=== PATIENT | female | born 1965 | race Asian ===

== ENCOUNTER 2023-04-28 10:03 | Emergency (ER) | payer OTHER, SELFPAY ==
[2023-04-28] VITALS (7 sets, daily range): BP systolic 114–178; BP diastolic 65–103; PULSE 90–119; RESP 12–30; TEMP 36.8–37.1; O2SAT 98–99; BMI 22.1
--- NOTE | 2023-04-28 10:16 | DI.RAD.S_ITS ---
PROCEDURE: XR CHEST 1V INDICATIONS: chest pain TECHNIQUE: One view of the chest was acquired. COMPARISON: None. FINDINGS: Surgical changes and devices: Physiologic monitor projects over the right chest Lungs and pleura: Lungs are clear. No pleural effusions or pneumothorax. Mediastinum: Mediastinal contours appear normal. Heart size is normal. Bones and chest wall: No suspicious bony lesions. Overlying soft tissues appear unremarkable. IMPRESSION: No acute cardiopulmonary findings Dictated by: Javier Montejo M.D. on 04/28/2023 at 9:39 Approved by: Javier Montejo M.D. on 04/28/2023 at 9:40
[2023-04-28 10:35] LABS: Add Manual Diff / Slide Review NO; Basophils Absolute Auto 0 /uL (0-100); Basophils Percent Auto 0.4 % (0-2); Eosinophils Absolute Auto 0 /uL (0-450); Eosinophils Percent Auto 0.4 % (2-4); Hematocrit 42.5 % (36-46); Hemoglobin 14.2 g/dL (12.0-16.0); Lymphocytes Absolute Auto 1400 /uL (1100-4500); Lymphocytes Percent Auto 22.9 % (25-40); Mean Corpuscular HGB Conc 33.5 % (30-36); Mean Corpuscular Volume 89.7 fL (80-100); Monocytes Absolute Auto 300 /uL (0-900); Monocytes Percent Auto 4.8 % (3-14); Neutrophils Absolute Auto 4500 /uL (1500-7000); Neutrophils Percent Auto 71.5 % (50-75); Platelet Count 371 X10^3/uL (150-400); Red Blood Cell Count 4.74 X10^6/uL (4.0-5.2); Red Cell Distribution Width 13.4 % (11.6-14.8); White Blood Cell Count 6.3 X10^3/uL (4.5-11.0)
[2023-04-28 10:38] LABS: Prothrombin Time 11.3 SECONDS (10.1-12.7)
[2023-04-28 10:41] LABS: PTT Partial Thromboplastin Tim 34 SECONDS (26-36)
[2023-04-28 10:42] LABS: Alanine Aminotransferase 26 IU/L (<35); Albumin 4.9 g/dL (3.5-5.0); Albumin Globulin Ratio 1.2 (1.0-2.8); Alkaline Phosphatase 85 U/L (38-126); Aspartate Aminotransferase 32 IU/L (14-36); BUN Creatinine Ratio 17.2 (6-22); Bilirubin Total 0.6 mg/dL (0.2-1.3); Blood Urea Nitrogen 10 mg/dL (7-17); Calcium 9.8 mg/dL (8.4-10.2); Carbon Dioxide 26 mmol/L (22-32); Chloride 103 mmol/L (98-107); Creatine Kinase 56 U/L (30-135); Estimated Glomerular Filt Rate > 60 mL/min (>60); Globulin 4.1 g/dL (1.7-4.1); Glucose 187 mg/dL (70-100); Lipase 132 U/L (23-300); Sodium 141 mmol/L (137-145)
[2023-04-28 10:43] LABS: HEMOLYSIS 79 (0-50)
[2023-04-28] MEDS: ASPIRIN 81 MG CHEW TAB 324 MG PO (10:43)
[2023-04-28 10:44] LABS: Potassium 3.8 mmol/L (3.4-5.1)
--- NOTE | 2023-04-28 10:50 | ED.ARRPALP ---
HPI - Arrhythmia/Palpitations General Chief Complaint: Arrhythmia/Palpitations Stated Complaint: heart palps/getting weaker/lightheaded Time Seen by Provider: 04/28/23 10:45 History of Present Illness HPI narrative: Patient is a 57-year-old female without significant past medical history presenting today her palpitations. She has had her palpitations in the past Calls it long COVID. However last 2 weeks she is had increasing palpitations keep her up at night. She downloaded in vern on her phone to help keep track of these. She is also followed by Dr. Trevino cardiology who has given her a Holter monitor. This just got set up last week. Today she is also feeling like she has tingling in both of her toes and maybe on the left side. No pain no cough no fever no shortness of breath. Review of Systems Review of Systems ROS Unobtainable: All systems reviewed & are unremarkable except as noted in HPI and below Exam Initial Vital Signs Initial Vital Signs: Vital Signs Pulse Rate 119 H 04/28/23 10:14 Pulse Oximetry 98 04/28/23 10:14 GENERAL: Alert pleasant 57-year-old female and in no acute distress. HEENT: Head atraumatic,EOMI, pupils reactive, face symmetric, moist mucous membranes CARDIOVASCULAR: Regular rate and rhythm without murmurs, rubs or gallops. RESPIRATORY: Breath sounds equal bilaterally, no wheezes rales or rhonchi. ABDOMEN: Soft, nontender. Normoactive bowel sounds all 4 quadrants. No guarding or rebound. EXTREMITIES: Normal range of motion, no clubbing or edema. Neurovascularly intact NEUROLOGICAL: Alert and oriented x4.Normal gait and speech. SKIN: Warm, dry, no laceration, no petechiae, no rashes or lesions. Course Orders Ordered: ED Orders 04/28/23 10:16 XR chest 1V Stat EKG-12 Lead Stat 04/28/23 10:25 Complete Blood Count AUTO DIFF Stat Comprehensive Metabolic Panel Stat Lipase Stat Magnesium Stat PTT Partial Thromboplastin Manuel Stat Prothrombin Time INR Stat Troponin & CK Cardiac Panel Stat Discontinued Medications Aspirin (Aspirin 81 Mg Chew Tab) 324 mg PO NOW ONE Stop: 04/28/23 10:16 Last Admin: 04/28/23 10:43 Dose: 324 mg Documented By: TC Vital Signs Vital signs: Vital Signs - 8 hr 04/28/23 10:14 04/28/23 10:15 04/28/23 10:15 Temperature Pulse Rate 119 H 115 H Respiratory Rate Blood Pressure 178/103 H Pulse Oximetry 98 98 Oxygen Delivery Method 04/28/23 10:18 04/28/23 10:18 04/28/23 10:20 Temperature 98.7 F Pulse Rate 104 H 115 H Respiratory Rate 29 H 20 Blood Pressure 151/79 H 151/79 H Pulse Oximetry 98 98 Oxygen Delivery Method Room Air 04/28/23 10:30 04/28/23 10:30 04/28/23 11:00 Temperature Pulse Rate 101 H 90 Respiratory Rate 30 H 22 Blood Pressure 157/78 H Pulse Oximetry 99 98 Oxygen Delivery Method 04/28/23 11:00 04/28/23 11:30 04/28/23 11:30 Temperature 98.3 F Pulse Rate 90 Respiratory Rate 12 Blood Pressure 114/65 122/72 Pulse Oximetry 98 Oxygen Delivery Method MDM - Arrhythmia/Palpitations Lab Data 04/28/23 10:25 04/28/23 10:25 Labs: Lab Results 04/28/23 Range/Units 10:25 WBC 6.3 (4.5-11.0) X10^3/uL RBC 4.74 (4.0-5.2) X10^6/uL Hgb 14.2 (12.0-16.0) g/dL Hct 42.5 (36-46) % MCV 89.7 (80-100) fL MCH 30.0 (26-34) PG MCHC 33.5 (30-36) % RDW 13.4 (11.6-14.8) % Plt Count 371 (150-400) X10^3/uL Neut % (Auto) 71.5 (50-75) % Lymph % (Auto) 22.9 L (25-40) % Swain % (Auto) 4.8 (3-14) % Eos % (Auto) 0.4 L (2-4) % Baso % (Auto) 0.4 (0-2) % Neut # (Auto) 4500 (6518-4328) /uL Lymph # (Auto) 1400 (8201-0936) /uL Swain # (Auto) 300 (0-900) /uL Eos # (Auto) 0 (0-450) /uL Baso # (Auto) 0 (0-100) /uL PT 11.3 (10.1-12.7) SECONDS INR 1.0 (0.9-1.3) APTT 34 (26-36) SECONDS Sodium 141 (137-145) mmol/L Potassium 3.8 (3.4-5.1) mmol/L Chloride 103 (98-107) mmol/L Carbon Dioxide 26 (22-32) mmol/L BUN 10 (7-17) mg/dL Creatinine 0.58 (0.52-1.04) mg/dL Estimated GFR > 60 (>60) mL/min BUN/Creatinine Ratio 17.2 (6-22) Glucose 187 H (70-100) mg/dL Calcium 9.8 (8.4-10.2) mg/dL Magnesium 2.0 (1.6-2.3) mg/dL Total Bilirubin 0.6 (0.2-1.3) mg/dL AST 32 (14-36) IU/L ALT 26 (<35) IU/L Alkaline Phosphatase 85 (38-126) U/L Total Creatine Kinase 56 (30-135) U/L Troponin I < 0.012 (0.01-0.034) ng/mL Total Protein 9.0 H (6.3-8.2) g/dL Albumin 4.9 (3.5-5.0) g/dL Globulin 4.1 (1.7-4.1) g/dL Albumin/Globulin Ratio 1.2 (1.0-2.8) Lipase 132 (23-300) U/L Imaging Data Chest x-ray: Radiologist's Impresson: PROCEDURE: XR CHEST 1V INDICATIONS: chest pain TECHNIQUE: One view of the chest was acquired. COMPARISON: None. FINDINGS: Surgical changes and devices: Physiologic monitor projects over the right chest Lungs and pleura: Lungs are clear. No pleural effusions or pneumothorax. Mediastinum: Mediastinal contours appear normal. Heart size is normal. Bones and chest wall: No suspicious bony lesions. Overlying soft tissues appear unremarkable. IMPRESSION: No acute cardiopulmonary findings Dictated by: Javier Montejo M.D. on 04/28/2023 at 9:3 ECG Data Interpretation: Sinus rhythm rate 97 LA interval 164 QRS [address] changes no T-wave inversions MDM Narrative Medical decision making narrative: Patient is a 57-year-old female who has had palpitations since COVID. She feels like her palpitations have increased over the last couple of weeks. She is been the monitor I really do not appreciate any PVCs. However on her phone where she has felt palpitations there is artifact probably some PVCs. No life-threatening arrhythmia identified. Blood work has been reviewed and is overall reassuring. Chest x-ray is negative. EKG does not show any abnormality. She has a Holter monitor on already and is following up with Cardiology. At this time I recommend she follow-up with Cardiology. Discharge Plan Departure Patient Disposition: Home Clinical Impression: Symptomatic PVCs Instructions: Premature Ventricular Beats Activity Restrictions/Additional Instructions: *You have been diagnosed with PVC *What to do: At this time not seeing any arrhythmia on your monitor EKG. You do have some PVCs on your phone. Please talk with your [employer] support about this. *Continue to take medications as directed *Follow up with your primary care provider in 2-3 days or call [phone] *Return to ER if you should have increasing palpitations pain dizziness lightheadedness shortness of breath [or] any new, worsening or concerning symptoms Referrals: Jessica Butler PA-C [Primary Care Provider] - Stand Alone Forms: Patient Portal/API
[2023-04-28 10:53] LABS: Troponin I < 0.012 ng/mL (0.01-0.034)
== END 2023-04-28 11:34 | disposition home or self-care (01) ==
PROVIDERS: Emergency Provider Emergency Medicine; PCP Physician Assistant Medical
DX: I49.3 Ventricular premature depolarization (principal)
CPT/HCPCS: 36415; 71045; 80053; 82550; 83690; 83735; 84484; 85025; 85610; 85730; 93005; 93010; 99284